=== PATIENT | female | born 1970 | race Caucasian/White ===

== ENCOUNTER 2017-04-04 11:29 | Inpatient (IN) | payer MEDICAID ==
[2017-04-04] MEDS ORDERED: Sodium Chloride 0.9% 500 ML IV SCH (12:15)
--- NOTE | 2017-04-04 12:56 | EDM.PDOC ---
ED HPI GENERAL MEDICAL PROBLEM - General Chief Complaint: Fever Stated Complaint: FEVER X 3 DAYS Time Seen by Provider: 04/04/17 11:53 Source of Information: Reports: Patient History Limitations: Reports: No Limitations - History of Present Illness INITIAL COMMENTS - FREE TEXT/NARRATIVE: 46 yo female presents with headache, neck stiffness, fever and urinary frequency /flank pain for the past 4 days. States that she has fever as high as 103 and has been self medicating with tylenol with relief but fever returns. C/o neck stiffness with movement and headache. 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 Has had decreased in appetite and increase in diarrhea but no vomiting or nausea. Onset Date: 03/31/17 Duration: Constant, Waxing/Waning Location: Reports: Head Quality: Reports: Ache Severity: Moderate Improves with: Reports: Medication Worsens with: Reports: None Associated Symptoms: Reports: Fever/Chills, Headaches, Malaise Treatments CATTLE KNOCKER: Reports: Acetaminophen 7 Pain Score (Numeric/FACES): 7 - Related Data Allergies Allergy/AdvReac Type Severity Reaction Status Date / Time No Known Allergies Allergy Verified 04/04/17 12:13 Home Meds: Home Meds Atenolol 04/04/17 [History] Cholecalciferol (Vitamin D3) [Vitamin D3] BID 04/04/17 [History] Venlafaxine HCl [Venlafaxine ER] 04/04/17 [History] Past Medical History - Past Health History Medical/Surgical History: Denies Medical/Surgical History Cardiovascular History: Reports: Hypertension Musculoskeletal History: Reports: Other (See Below) Other Musculoskeletal History: MS Neurological History: Reports: MS Psychiatric History: Reports: ADHD Oncologic (Cancer) History: Reports: Malignant Melanoma Social & Family History - Family History Family Medical History: Noncontributory - Tobacco Use Smoking Status *Q: Unknown Ever Smoked Second Hand Smoke Exposure: Yes - Caffeine Use Caffeine Use: Reports: Coffee - Recreational Drug Use Recreational Drug Use: No ED ROS GENERAL - Review of Systems Review Of Systems: ROS reveals no pertinent complaints other than HPI. ED EXAM, GENERAL - Physical Exam Exam: See Below Exam Limited By: No Limitations General Appearance: Alert, WD/WN, No Apparent Distress Eye Exam: Bilateral Eye: Normal Inspection, PERRL Ears: Normal External Exam, Normal Canal, Hearing Grossly Normal, Normal TMs Ear Exam: Bilateral Ear: Auricle Normal, Canal Normal, TM normal Nose: Clear Rhinorrhea Throat/Mouth: Normal Inspection, Normal Lips, Normal Teeth, Normal Gums, Normal Oropharynx, Normal Voice, No Airway Compromise Head: Atraumatic, Normocephalic Neck: Normal Inspection, Supple, Non-Tender, Full Range of Motion Respiratory/Chest: No Respiratory Distress, Lungs Clear, Normal Breath Sounds, No Accessory Muscle Use, Chest Non-Tender Cardiovascular: Normal Peripheral Pulses, Regular Rate, Rhythm, No Edema, No Gallop, No JVD, No Murmur, No Rub GI/Abdominal: Normal Bowel Sounds, Soft, Non-Tender, No Organomegaly, No Distention, No Abnormal Bruit, No Mass Back Exam: CVA Tenderness (L), CVA Tenderness (R) Extremities: Normal Inspection, Normal Range of Motion, Non-Tender, Normal Capillary Refill, No Pedal Edema Neurological: Alert, Oriented, Normal Cognition, Normal Gait, No Motor/Sensory Deficits Skin Exam: Warm, Dry, Intact, Normal Color, No Rash Course - Vital Signs Last Recorded V/S: Last Vital Signs Temp 98.2 F 04/04/17 11:49 Pulse 85 04/04/17 11:49 Resp 16 04/04/17 11:49 BP 95/62 04/04/17 11:49 Pulse Ox 95 04/04/17 11:49 - Orders/Labs/Meds Orders: Active Orders 24 hr Category Date Time Status CULTURE BLOOD [BC] Stat Lab 04/04/17 12:25 Received CULTURE URINE [RM] Stat Lab 04/04/17 12:10 Received Sodium Chloride 0.9% [Normal Saline] 500 ml Med 04/04/17 12:15 Active IV .BOLUS Blood Culture x2 Reflex Set [OM.PC] Stat Oth 04/04/17 12:11 Ordered Medication Orders Sodium Chloride (Normal Saline) 500 mls @ 1,000 mls/hr IV .BOLUS YONATAN Last Admin: 04/04/17 12:31 Dose: 1,000 mls/hr Labs: Laboratory Tests 04/04/17 04/04/17 04/04/17 Range/Units 12:10 13:18 13:18 WBC 20.2 H (5.0-10.0) 10^3/uL RBC 4.16 L (4.2-5.4) 10^6/uL Hgb 12.1 (12.0-16.0) g/dL Hct 34.9 L (37.0-47.0) % MCV 83.9 (80-100) fL MCH 29.1 (27.0-34.0) pg MCHC 34.7 (33.0-35.0) g/dL Plt Count 173 (150-450) 10^3/uL Neut % (Auto) 88.8 H (42.2-75.2) % Lymph % (Auto) 4.3 L (20.5-50.1) % [place] % (Auto) 6.8 (2-8) % Eos % (Auto) 0.0 L (1.0-3.0) % Baso % (Auto) 0.1 (0.0-1.0) % Add Manual Diff Yes Neutrophils % (Manual) 67 % Band Neutrophils % 25 % Lymphocytes % (Manual) 4 % Monocytes % (Manual) 4 % Toxic Granulation 1+ slight Platelet Estimate Adequate Sodium 127 L (135-145) mmol/L Potassium 3.4 L (3.6-5.0) mmol/L Chloride 93 L (101-111) mmol/L Carbon Dioxide 20.0 L (21.0-31.0) mmol/L Anion Gap 17.4 BUN 25 H (7-18) mg/dL Creatinine 1.7 H (0.6-1.3) mg/dL Est Cr Clr Drug Dosing 39.78 mL/min Estimated GFR (MDRD) 32 BUN/Creatinine Ratio 14.70 Glucose 89 (74-105) mg/dL Lactic Acid (0.5-2.2) mmol/L Calcium 7.8 L (8.4-10.2) mg/dl Total Bilirubin 0.5 (0.2-1.0) mg/dL AST 21 (10-42) IU/L ALT 15 (10-60) IU/L Alkaline Phosphatase 63 (42-121) IU/L Total Protein 5.8 L (6.7-8.2) g/dl Albumin 3.1 L (3.2-5.5) g/dl Globulin 2.7 Albumin/Globulin Ratio 1.15 Urine Color Yellow (YELLOW) Urine Appearance Cloudy (CLEAR) Urine pH 5.5 (5.0-9.0) Ur Specific [place] 1.025 (1.005-1.030) Urine Protein >=300 H (NEGATIVE) Urine Glucose (UA) Negative (NEGATIVE) Urine Ketones Negative (NEGATIVE) Urine Occult Blood Moderate H (NEGATIVE) Urine Nitrite Negative (NEGATIVE) Urine Bilirubin Small H (NEGATIVE) Urine Urobilinogen 0.2 (0.2-1.0) mg/dL Ur Leukocyte Esterase Large H (NEGATIVE) Urine RBC 10-20 H /HPF Urine WBC 75-100 H (0-5/HPF) /HPF Ur Epithelial Cells Many H /HPF Urine Bacteria Many H (0-FEW/HPF) /HPF Hyaline Casts Few H /LPF Granular Casts Few /LPF Urine Other See note Urinalysis Comment 04/04/17 Range/Units 13:18 WBC (5.0-10.0) 10^3/uL RBC (4.2-5.4) 10^6/uL Hgb (12.0-16.0) g/dL Hct (37.0-47.0) % MCV (80-100) fL MCH (27.0-34.0) pg MCHC (33.0-35.0) g/dL Plt Count (150-450) 10^3/uL Neut % (Auto) (42.2-75.2) % Lymph % (Auto) (20.5-50.1) % [place] % (Auto) (2-8) % Eos % (Auto) (1.0-3.0) % Baso % (Auto) (0.0-1.0) % Add Manual Diff Neutrophils % (Manual) % Band Neutrophils % % Lymphocytes % (Manual) % Monocytes % (Manual) % Toxic Granulation Platelet Estimate Sodium (135-145) mmol/L Potassium (3.6-5.0) mmol/L Chloride (101-111) mmol/L Carbon Dioxide (21.0-31.0) mmol/L Anion Gap BUN (7-18) mg/dL Creatinine (0.6-1.3) mg/dL Est Cr Clr Drug Dosing mL/min Estimated GFR (MDRD) BUN/Creatinine Ratio Glucose (74-105) mg/dL Lactic Acid 2.0 (0.5-2.2) mmol/L Calcium (8.4-10.2) mg/dl Total Bilirubin (0.2-1.0) mg/dL AST (10-42) IU/L ALT (10-60) IU/L Alkaline Phosphatase (42-121) IU/L Total Protein (6.7-8.2) g/dl Albumin (3.2-5.5) g/dl Globulin Albumin/Globulin Ratio Urine Color (YELLOW) Urine Appearance (CLEAR) Urine pH (5.0-9.0) Ur Specific [place] (1.005-1.030) Urine Protein (NEGATIVE) Urine Glucose (UA) (NEGATIVE) Urine Ketones (NEGATIVE) Urine Occult Blood (NEGATIVE) Urine Nitrite (NEGATIVE) Urine Bilirubin (NEGATIVE) Urine Urobilinogen (0.2-1.0) mg/dL Ur Leukocyte Esterase (NEGATIVE) Urine RBC /HPF Urine WBC (0-5/HPF) /HPF Ur Epithelial Cells /HPF Urine Bacteria (0-FEW/HPF) /HPF Hyaline Casts /LPF Granular Casts /LPF Urine Other Urinalysis Comment Meds: Medications Generic Name Dose Route Start Last Admin Trade Name Freq PRN Reason Stop Dose Admin Sodium Chloride 500 mls @ 1,000 mls/hr 04/04/17 12:15 04/04/17 12:31 Normal Saline IV 1,000 mls/hr .BOLUS YONATAN Administration Discontinued Medications Generic Name Dose Route Start Last Admin Trade Name Freq PRN Reason Stop Dose Admin Ceftriaxone Sodium 1 gm/ 50 mls @ 100 mls/hr 04/04/17 13:55 04/04/17 14:05 Sodium Chloride IV 04/04/17 14:24 100 mls/hr ONETIME ONE Administration - Re-Assessments/Exams Free Text/Narrative Re-Assessment/Exam: 04/04/17 14:38 Lab work reviewed and pt has acute pylenonephritis. Discussed case with Dr. Garzon and he agreed to admit for IV antibiotics. Departure - Departure Time of Disposition: 14:39 Disposition: Admitted As Inpatient 65 Condition: Fair Clinical Impression: Pyelonephritis - Discharge Information Forms: ED Department Discharge - My Orders Last 24 Hours: My Active Orders 04/04/17 12:10 CULTURE URINE [RM] Stat 04/04/17 12:11 Blood Culture x2 Reflex Set [OM.PC] Stat 04/04/17 12:15 Sodium Chloride 0.9% [Normal Saline] 500 ml IV .BOLUS 04/04/17 12:25 CULTURE BLOOD [BC] Stat - Assessment/Plan Last 24 Hours: My Active Orders 04/04/17 12:10 CULTURE URINE [RM] Stat 04/04/17 12:11 Blood Culture x2 Reflex Set [OM.PC] Stat 04/04/17 12:15 Sodium Chloride 0.9% [Normal Saline] 500 ml IV .BOLUS 04/04/17 12:25 CULTURE BLOOD [BC] Stat
[2017-04-04] MEDS ORDERED: cefTRIAXone 1 GM in Sodium Chloride 0.9% 50 ML IV ONE (13:55)
[2017-04-04] MEDS ORDERED: Potassium Chloride 10 MEQ Tab.ER PO ONE (15:16)
[2017-04-04] MEDS ORDERED: Ondansetron 4 MG Tab.DIS PO PRN (15:19)
[2017-04-04] MEDS ORDERED: Sodium Chloride 0.9% 10 ML Syringe FLUSH PRN (15:19)
[2017-04-04] MEDS ORDERED: Docusate Sodium 100 MG Cap PO PRN (15:19)
--- NOTE | 2017-04-04 15:29 | PCM.HP ---
H&P History of Present Illness - General Date of Service: 04/04/17 Admit Problem/Dx: Admission Diagnosis/Problem Admission Diagnosis/Problem Pyelonephritis - History of Present Illness Initial Comments - Free Text/Narative: The patient is a 46 year old lady with a history of [place] encephalitis and multiple sclerosis. The patient has a history of hypertension, depression. Since last Thursday the patient has been experiencing chills, headache, foul- smelling urine. Her temperature was up to 102. No cough, no shortness of breath, no chest pain, no diarrhea. 7 Pain Score (Numeric/FACES): 7 - Related Data Allergies/Adverse Reactions: Allergies Allergy/AdvReac Type Severity Reaction Status Date / Time No Known Allergies Allergy Verified 04/04/17 15:11 Home Medications: Home Meds Atenolol 25 mg PO DAILY 04/04/17 [History] Cholecalciferol (Vitamin D3) [Vitamin D3] 10,000 unit PO BID 04/04/17 [History] Venlafaxine HCl [Venlafaxine ER] 150 cap PO DAILY 04/04/17 [History] Past Medical History - Past Health History Medical/Surgical History: Denies Medical/Surgical History Cardiovascular History: Reports: Hypertension Genitourinary History: Reports: Pyelonephritis Musculoskeletal History: Reports: Other (See Below) Other Musculoskeletal History: MS Neurological History: Reports: MS Psychiatric History: Reports: ADHD Oncologic (Cancer) History: Reports: Malignant Melanoma - Past Surgical History Cardiovascular Surgical History: Reports: None Musculoskeletal Surgical History: Reports: None Social & Family History - Family History Family Medical History: Noncontributory - Tobacco Use Smoking Status *Q: Former Smoker Years of Tobacco use: 20 Packs/Tins Daily: 1.5 Used Tobacco, but Quit: Yes Month Tobacco Last Used: February Second Hand Smoke Exposure: Yes - Caffeine Use Caffeine Use: Reports: Coffee - Recreational Drug Use Recreational Drug Use: No H&P Review of Systems - Review of Systems: Review Of Systems: See Below General: Reports: Fever, Chills, Malaise Pulmonary: Denies: Shortness of Breath Cardiovascular: Denies: Chest Pain Gastrointestinal: Denies: Abdominal Pain Genitourinary: Denies: Dysuria Psychiatric: Denies: Confusion Neurological: Reports: Headache Exam - Exam Exam: See Below - Vital Signs Vital Signs: Last Vital Signs Temp 36.8 C 04/04/17 11:49 Pulse 85 04/04/17 11:49 Resp 16 04/04/17 11:49 BP 95/62 04/04/17 11:49 Pulse Ox 95 04/04/17 11:49 Weight: 80.467 kg - Exam Quality Assessment: Other (Shaking chills) General: Alert, Oriented HEENT: Conjunctiva Clear, EOMI Neck: Supple Lungs: Clear to Auscultation, Normal Respiratory Effort Cardiovascular: Regular Rate, Regular Rhythm GI/Abdominal Exam: Normal Bowel Sounds, Soft, Non-Tender Back Exam: CVA Tenderness (L), CVA Tenderness (R) Extremities: No Pedal Edema Skin: Warm, Dry Neuro Extensive - Mental Status: Alert, Oriented x3, Normal Mood/Affect - Patient Data Result Diagrams: 04/04/17 13:18 04/04/17 13:18 *Q Meaningful Use (ADM) - VTE *Q VTE Criteria *Q: - Stroke *Q Stroke Criteria *Q: - AMI *Q AMI Criteria *Q: - Problem List (1) Sepsis SNOMED Code(s): 14329201 ICD Code: A41.9 - SEPSIS, UNSPECIFIED ORGANISM Status: Acute Current Visit: Yes (2) Urinary tract infection SNOMED Code(s): 93910457 ICD Code: N39.0 - URINARY TRACT INFECTION, SITE NOT SPECIFIED Status: Acute Current Visit: Yes (3) Depression SNOMED Code(s): 13220606 ICD Code: F32.9 - MAJOR DEPRESSIVE DISORDER, SINGLE EPISODE, UNSPECIFIED Status: Acute Current Visit: Yes (4) Hypertension SNOMED Code(s): 23646569 ICD Code: I10 - ESSENTIAL (PRIMARY) HYPERTENSION Status: Acute Current Visit: Yes (5) Pyelonephritis SNOMED Code(s): 31897106 ICD Code: N12 - TUBULO-INTERSTITIAL NEPHRITIS, NOT SPCF ACUTE OR CHRONIC Status: Acute Current Visit: Yes Problem List Initiated/Reviewed/Updated: Yes Orders Last 24hrs: Active Orders 24 hr Category Date Time Status Patient Status [ADT] Routine ADT 04/04/17 15:19 Ordered Antiembolic Devices [RC] PER UNIT ROUTINE Care 04/04/17 15:22 Ordered Oxygen Therapy [RC] PRN Care 04/04/17 15:19 Ordered Peripheral IV Care [RC] . DIRECTED Care 04/04/17 15:22 Ordered Up ad Susy [RC] ASDIRECTED Care 04/04/17 15:19 Ordered VTE/DVT Education [RC] PER UNIT ROUTINE Care 04/04/17 15:19 Ordered Vital Signs [RC] Q4H Care 04/04/17 15:19 Ordered Regular Diet [DIET] Diet 04/04/17 Dinner Ordered Acetaminophen [Tylenol] Med 04/04/17 15:19 Ordered 650 mg PO Q4H PRN Atenolol [Tenormin] Med 04/05/17 09:00 Ordered 25 mg PO DAILY Cholecalciferol (Vitamin D3) [Vitamin D3] Med 04/04/17 21:00 Ordered 10,000 unit PO BID Docusate Sodium [Colace] Med 04/04/17 15:19 Ordered 100 mg PO BID PRN Heparin Sodium Med 04/04/17 22:00 Ordered 5,000 units SUBCUT Q8HR Ibuprofen [Motrin] Med 04/04/17 15:19 Ordered 400 mg PO Q6H PRN Ondansetron [Zofran ODT] Med 04/04/17 15:19 Stop Req 4 mg PO Q6H PRN Potassium Chloride [Klor-Con 10] Med 04/04/17 15:16 Once 40 meq PO ONETIME ONE Sodium Chloride 0.9% [Saline Flush] Med 04/04/17 15:19 Ordered 10 ml FLUSH ASDIRECTED PRN Sodium Chloride 0.9% with KCl 20 mEq @ 150 mL/Hr (1000 Med 04/04/17 15:15 Ordered mL) NS + KCl 20mEq/L [Normal Saline with 20 mEq KCl] 1,000 ml IV ASDIRECTED Venlafaxine [Venlafaxine HCl ER] Med 04/05/17 09:00 Ordered 150 cap PO DAILY Zolpidem [Ambien] Med 04/04/17 15:19 Ordered 5 mg PO BEDTIME PRN cefTRIAXone [Rocephin] 1 gm Med 04/05/17 15:15 Ordered Sodium Chloride 0.9% [Normal Saline] 50 ml IV Q24H Antiembolic Hose [OM.PC] Per Unit Routine Oth 04/04/17 15:21 Ordered Peripheral IV Insertion Adult [OM.PC] Routine Oth 04/04/17 15:19 Ordered Resuscitation Status Routine Resus Stat 04/04/17 15:19 Ordered Medication Orders Acetaminophen (Tylenol) 650 mg PO Q4H PRN PRN Reason: Pain (Mild 1-3)/fever Atenolol (Tenormin) 25 mg PO DAILY [facility] Docusate Sodium (Colace) 100 mg PO BID PRN PRN Reason: Constipation Heparin Sodium (Porcine) (Heparin Sodium) 5,000 units SUBCUT Q8HR [facility] Sodium Chloride (Normal Saline) 500 mls @ 1,000 mls/hr IV .BOLUS YONATAN Last Admin: 04/04/17 12:31 Dose: 1,000 mls/hr Potassium Chloride/Sodium Chloride (Normal Saline With 20 Meq Kcl) 1,000 mls @ 150 mls/hr IV ASDIRECTED [facility] Ceftriaxone Sodium 1 gm/ (Sodium Chloride) 50 mls @ 100 mls/hr IV Q24H YONATAN Ibuprofen (Motrin) 400 mg PO Q6H PRN PRN Reason: Pain (mild 1-3) Non-Formulary Medication (Cholecalciferol (Vitamin D3) [Vitamin D3]) 10,000 unit PO BID [facility] Potassium Chloride (Klor-Con 10) 40 meq PO ONETIME ONE Stop: 04/04/17 15:17 Sodium Chloride (Saline Flush) 10 ml FLUSH ASDIRECTED PRN PRN Reason: Keep Vein Open Venlafaxine HCl (Venlafaxine Hcl Er) mg PO DAILY [facility] Zolpidem Tartrate (Ambien) 5 mg PO BEDTIME PRN PRN Reason: Sleep Assessment/Plan Comment:: 46-year-old lady presented with foul-smelling urine abnormal UA, chills leukocytosis fever. #1 sepsis due to urinary tract infection associated with pyelonephritis Obtain blood culture, urine culture Started on empirical treatment with ceftriaxone #2 acute renal failure likely due to sepsis Will hydrate the patient Follow electrolytes and renal function test #3 hyponatremia Likely due to sepsis, hypovolemia Follow with hydration #4 history of hypertension With continue atenolol with holding per meters #5 depression Continue Effexor #6 DVT prophylaxis will be with subcutaneous heparin
[2017-04-04] MEDS: NS + KCl 20mEq/L 1,000 ML IV SCH ×2 (15:50→22:32)
[2017-04-04] MEDS: Ibuprofen 400 MG Tab PO PRN (15:51)
[2017-04-04] MEDS: Acetaminophen 325 MG Tab PO PRN ×2 (16:31→21:13)
[2017-04-04] MEDS: Zolpidem 5 MG Tab PO PRN (21:14)
[2017-04-04] MEDS: Heparin Sodium 5,000 Units/ML Vial SUBCUT SCH (21:15)
[2017-04-05] MEDS: NS + KCl 20mEq/L 1,000 ML IV SCH ×3 (05:13→19:52)
[2017-04-05] MEDS: Ibuprofen 400 MG Tab PO PRN ×3 (05:21→22:18)
[2017-04-05] MEDS: Heparin Sodium 5,000 Units/ML Vial SUBCUT SCH ×3 (05:22→22:01)
[2017-04-05] MEDS: Atenolol 25 MG Tab PO SCH (09:13)
[2017-04-05] MEDS: Venlafaxine 150 MG CAP.ER PO SCH (09:14)
--- NOTE | 2017-04-05 10:38 | PCM.PN ---
- General Info Date of Service: 04/05/17 Admission Dx/Problem (Free Text): Admission Diagnosis/Problem Admission Diagnosis/Problem Pyelonephritis Subjective Update: The chills have much improved. Still had fever overnight. She is feeling much better. No associated chest pain, no abdominal pain, no shortness of breath. Functional Status: Reports: Pain Controlled - Review of Systems General: Reports: Fever. Denies: Weakness Pulmonary: Denies: Shortness of Breath Cardiovascular: Denies: Chest Pain Gastrointestinal: Denies: Abdominal Pain Genitourinary: Denies: Dysuria - Patient Data Vitals - Most Recent: Last Vital Signs Temp 36.3 C 04/05/17 07:04 Pulse 108 H 04/05/17 09:13 Resp 20 04/05/17 07:04 BP 104/66 04/05/17 09:13 Pulse Ox 97 04/05/17 07:04 Weight - Most Recent: 80.467 kg I&O - Last 24 Hours: Intake & Output 04/04/17 04/05/17 04/05/17 22:59 06:59 14:59 Intake Total 1100 1976 200 Output Total 100 Balance 1000 1976 200 Lab Results Last 24 Hours: Laboratory Results - last 24 hr 04/05/17 04/05/17 Range/Units 09:48 09:48 WBC 16.7 H (5.0-10.0) 10^3/uL RBC 3.75 L (4.2-5.4) 10^6/uL Hgb 11.0 L (12.0-16.0) g/dL Hct 31.5 L (37.0-47.0) % MCV 84.0 (80-100) fL MCH 29.3 (27.0-34.0) pg MCHC 34.9 (33.0-35.0) g/dL Plt Count 152 (150-450) 10^3/uL Neut % (Auto) 91.6 H (42.2-75.2) % Lymph % (Auto) 2.6 L (20.5-50.1) % [place] % (Auto) 5.7 (2-8) % Eos % (Auto) 0.0 L (1.0-3.0) % Baso % (Auto) 0.1 (0.0-1.0) % Sodium 133 L (135-145) mmol/L Potassium 3.7 (3.6-5.0) mmol/L Chloride 103 (101-111) mmol/L Carbon Dioxide 21.0 (21.0-31.0) mmol/L Anion Gap 12.7 BUN 19 H (7-18) mg/dL Creatinine 1.2 (0.6-1.3) mg/dL Est Cr Clr Drug Dosing 56.36 mL/min Estimated GFR (MDRD) 48 Glucose 129 H (74-105) mg/dL Calcium 7.8 L (8.4-10.2) mg/dl Med Orders - Current: Current Medications Acetaminophen (Tylenol) 650 mg PO Q4H PRN PRN Reason: Pain (Mild 1-3)/fever Last Admin: 04/04/17 21:13 Dose: 650 mg Atenolol (Tenormin) 25 mg PO DAILY [facility] Last Admin: 04/05/17 09:13 Dose: Not Given Docusate Sodium (Colace) 100 mg PO BID PRN PRN Reason: Constipation Heparin Sodium (Porcine) (Heparin Sodium) 5,000 units SUBCUT Q8HR [facility] Last Admin: 04/05/17 05:22 Dose: 5,000 units Sodium Chloride (Normal Saline) 500 mls @ 1,000 mls/hr IV .BOLUS [facility] Last Admin: 04/04/17 12:31 Dose: 1,000 mls/hr Potassium Chloride/Sodium Chloride (Normal Saline With 20 Meq Kcl) 1,000 mls @ 150 mls/hr IV ASDIRECTED [facility] Last Admin: 04/05/17 05:13 Dose: 150 mls/hr Ceftriaxone Sodium 1 gm/ (Sodium Chloride) 50 mls @ 100 mls/hr IV Q24H [facility] Ibuprofen (Motrin) 400 mg PO Q6H PRN PRN Reason: Pain (mild 1-3) Last Admin: 04/05/17 05:21 Dose: 400 mg Cholecalciferol ( Vitamin D3) 5,000 Unit Cap 0 unit PO BID [facility] Last Admin: 04/05/17 09:12 Dose: 2 unit Sodium Chloride (Saline Flush) 10 ml FLUSH ASDIRECTED PRN PRN Reason: Keep Vein Open Venlafaxine HCl (Venlafaxine Hcl Er) 150 mg PO DAILY [facility] Last Admin: 04/05/17 09:14 Dose: 150 mg Zolpidem Tartrate (Ambien) 5 mg PO BEDTIME PRN PRN Reason: Sleep Last Admin: 04/04/17 21:14 Dose: 5 mg Discontinued Medications Ceftriaxone Sodium 1 gm/ (Sodium Chloride) 50 mls @ 100 mls/hr IV ONETIME ONE Stop: 04/04/17 14:24 Last Admin: 04/04/17 14:05 Dose: 100 mls/hr Ondansetron HCl (Zofran Odt) 4 mg PO Q6H PRN PRN Reason: nausea, able to take PO Potassium Chloride (Klor-Con 10) 40 meq PO ONETIME ONE Stop: 04/04/17 15:17 Last Admin: 04/04/17 15:51 Dose: 40 meq - Exam General: Alert, Oriented Neck: Supple Lungs: Clear to Auscultation, Normal Respiratory Effort Cardiovascular: Regular Rate, Regular Rhythm GI/Abdominal Exam: Normal Bowel Sounds, Soft, Non-Tender Extremities: No Pedal Edema - Problem List & Annotations (1) Sepsis SNOMED Code(s): 68674485 Code(s): A41.9 - SEPSIS, UNSPECIFIED ORGANISM Status: Acute Current Visit : Yes (2) Urinary tract infection SNOMED Code(s): 89125813 Code(s): N39.0 - URINARY TRACT INFECTION, SITE NOT SPECIFIED Status: Acute Current Visit: Yes (3) Depression SNOMED Code(s): 59329098 Code(s): F32.9 - MAJOR DEPRESSIVE DISORDER, SINGLE EPISODE, UNSPECIFIED Status: Acute Current Visit: Yes (4) Hypertension SNOMED Code(s): 99542622 Code(s): I10 - ESSENTIAL (PRIMARY) HYPERTENSION Status: Acute Current Visit: Yes (5) Pyelonephritis SNOMED Code(s): 59667572 Code(s): N12 - TUBULO-INTERSTITIAL NEPHRITIS, NOT SPCF ACUTE OR CHRONIC Status: Acute Current Visit: Yes - Problem List Review Problem List Initiated/Reviewed/Updated: Yes - My Orders Last 24 Hours: My Active Orders 04/04/17 15:15 NS + KCl 20mEq/L [Normal Saline with 20 mEq KCl] 1,000 ml IV ASDIRECTED 04/04/17 15:19 Patient Status [ADT] Routine Oxygen Therapy [RC] PRN Up ad Susy [RC] ASDIRECTED Vital Signs [RC] Q4H Acetaminophen [Tylenol] 650 mg PO Q4H PRN Docusate Sodium [Colace] 100 mg PO BID PRN Ibuprofen [Motrin] 400 mg PO Q6H PRN Sodium Chloride 0.9% [Saline Flush] 10 ml FLUSH ASDIRECTED PRN Zolpidem [Ambien] 5 mg PO BEDTIME PRN Peripheral IV Insertion Adult [OM.PC] Routine Resuscitation Status Routine 04/04/17 15:21 Antiembolic Hose [OM.PC] Per Unit Routine 04/04/17 15:22 Antiembolic Devices [RC] PER UNIT ROUTINE Peripheral IV Care [RC] 04/04/17 21:00 Cholecalciferol (Vitamin D3) [Vitamin D3] 0 unit PO BID 04/04/17 22:00 Heparin Sodium 5,000 units SUBCUT Q8HR 04/04/17 Dinner Regular Diet [DIET] 04/05/17 09:00 Atenolol [Tenormin] 25 mg PO DAILY Venlafaxine [Venlafaxine HCl ER] 150 mg PO DAILY 04/05/17 15:00 cefTRIAXone [Rocephin] 1 gm Sodium Chloride 0.9% [Normal Saline] 50 ml IV Q24H 04/06/17 05:15 BASIC METABOLIC PANEL,BMP [CHEM] AM CBC WITH AUTO DIFF [HEME] AM - Plan Plan:: 46-year-old lady presented with foul-smelling urine abnormal UA, chills leukocytosis fever. #1 sepsis due to urinary tract infection associated with pyelonephritis blood culture: pending urine culture: gram neg suha Started on empirical treatment with ceftriaxone #2 acute renal failure likely due to sepsis improved - will cont to hydrate the patient Follow electrolytes and renal function test #3 hyponatremia improved Likely due to sepsis, hypovolemia Follow with hydration #4 history of hypertension will continue atenolol with holding parameters hold this morning #5 depression Continue Effexor #6 DVT prophylaxis will be with subcutaneous heparin
[2017-04-05] MEDS: Acetaminophen 325 MG Tab PO PRN ×3 (12:14→20:39)
[2017-04-05] MEDS ORDERED: cefTRIAXone 1 GM in Sodium Chloride 0.9% 50 ML IV SCH (15:00)
[2017-04-05] MEDS ORDERED: Pantoprazole 40 MG Tab.CR PO SCH (16:45)
[2017-04-06] MEDS: Acetaminophen 325 MG Tab PO PRN ×3 (03:32→14:06)
[2017-04-06] MEDS: Pantoprazole 40 MG Tab.CR PO SCH (05:57)
[2017-04-06] MEDS: Heparin Sodium 5,000 Units/ML Vial SUBCUT SCH ×3 (05:57→21:48)
[2017-04-06 06:56] LABS: CHLORIDE,CL 110 mmol/L (101-111); SODIUM,NA 139 mmol/L (135-145)
[2017-04-06] MEDS: Venlafaxine 150 MG CAP.ER PO SCH (08:59)
--- NOTE | 2017-04-06 10:55 | PCM.PN ---
- General Info Date of Service: 04/06/17 Admission Dx/Problem (Free Text): Admission Diagnosis/Problem Admission Diagnosis/Problem Pyelonephritis Subjective Update: The chills have much improved. Still had fever overnight. She is feeling much better. She is often walking around. No associated chest pain, no abdominal pain, no shortness of breath. - Review of Systems General: Reports: Fever. Denies: Weakness Pulmonary: Denies: Shortness of Breath Cardiovascular: Denies: Chest Pain Gastrointestinal: Denies: Abdominal Pain Genitourinary: Reports: Dysuria Neurological: Denies: Confusion - Patient Data Vitals - Most Recent: Last Vital Signs Temp 37.7 C 04/06/17 07:00 Pulse 97 04/06/17 07:00 Resp 18 04/06/17 07:00 BP 99/59 L 04/06/17 07:00 Pulse Ox 96 04/06/17 07:00 Weight - Most Recent: 82.826 kg I&O - Last 24 Hours: Intake & Output 04/05/17 04/06/17 04/06/17 22:59 06:59 14:59 Intake Total 2000 1249 Output Total 1249 900 Balance 751 350 Lab Results Last 24 Hours: Laboratory Results - last 24 hr 04/06/17 04/06/17 Range/Units 05:55 05:55 WBC 13.8 H (5.0-10.0) 10^3/uL RBC 3.73 L (4.2-5.4) 10^6/uL Hgb 10.8 L (12.0-16.0) g/dL Hct 31.8 L (37.0-47.0) % MCV 85.3 (80-100) fL MCH 29.0 (27.0-34.0) pg MCHC 34.0 (33.0-35.0) g/dL Plt Count 174 (150-450) 10^3/uL Neut % (Auto) 85.9 H (42.2-75.2) % Lymph % (Auto) 5.2 L (20.5-50.1) % [place] % (Auto) 8.8 H (2-8) % Eos % (Auto) 0.1 L (1.0-3.0) % Baso % (Auto) 0.0 (0.0-1.0) % Sodium 139 (135-145) mmol/L Potassium 3.8 (3.6-5.0) mmol/L Chloride 110 (101-111) mmol/L Carbon Dioxide 21.0 (21.0-31.0) mmol/L Anion Gap 11.8 BUN 14 (7-18) mg/dL Creatinine 0.9 (0.6-1.3) mg/dL Est Cr Clr Drug Dosing 75.15 mL/min Estimated GFR (MDRD) > 60 Glucose 99 (74-105) mg/dL Calcium 7.8 L (8.4-10.2) mg/dl Med Orders - Current: Current Medications Acetaminophen (Tylenol) 650 mg PO Q4H PRN PRN Reason: Pain (Mild 1-3)/fever Last Admin: 04/06/17 08:58 Dose: 650 mg Atenolol (Tenormin) 25 mg PO DAILY [facility] Last Admin: 04/05/17 09:13 Dose: Not Given Docusate Sodium (Colace) 100 mg PO BID PRN PRN Reason: Constipation Heparin Sodium (Porcine) (Heparin Sodium) 5,000 units SUBCUT Q8HR [facility] Last Admin: 04/06/17 05:57 Dose: 5,000 units Levofloxacin/Dextrose 750 mg/ (Premix) 150 mls @ 100 mls/hr IV Q24H [facility] Ibuprofen (Motrin) 400 mg PO Q6H PRN PRN Reason: Pain (mild 1-3) Last Admin: 04/05/17 22:18 Dose: 400 mg Cholecalciferol ( Vitamin D3) 5,000 Unit Cap 0 unit PO BID [facility] Last Admin: 04/06/17 08:57 Dose: 10,000 unit Pantoprazole Sodium (Protonix) 40 mg PO ACBREAKFAST [facility] Last Admin: 04/06/17 05:57 Dose: 40 mg Sodium Chloride (Saline Flush) 10 ml FLUSH ASDIRECTED PRN PRN Reason: Keep Vein Open Venlafaxine HCl (Venlafaxine Hcl Er) 150 mg PO DAILY [facility] Last Admin: 04/06/17 08:59 Dose: 150 mg Zolpidem Tartrate (Ambien) 5 mg PO BEDTIME PRN PRN Reason: Sleep Last Admin: 04/04/17 21:14 Dose: 5 mg Discontinued Medications Sodium Chloride (Normal Saline) 500 mls @ 1,000 mls/hr IV .BOLUS [facility] Last Admin: 04/04/17 12:31 Dose: 1,000 mls/hr Ceftriaxone Sodium 1 gm/ (Sodium Chloride) 50 mls @ 100 mls/hr IV ONETIME ONE Stop: 04/04/17 14:24 Last Admin: 04/04/17 14:05 Dose: 100 mls/hr Potassium Chloride/Sodium Chloride (Normal Saline With 20 Meq Kcl) 1,000 mls @ 75 mls/hr IV ASDIRECTED [facility] Last Infusion: 04/06/17 07:05 Dose: Infused Ceftriaxone Sodium 1 gm/ (Sodium Chloride) 50 mls @ 100 mls/hr IV Q24H [facility] Last Admin: 04/05/17 15:46 Dose: 100 mls/hr Ondansetron HCl (Zofran Odt) 4 mg PO Q6H PRN PRN Reason: nausea, able to take PO Pantoprazole Sodium (Protonix) 40 mg PO BEDTIME [facility] Last Admin: 04/05/17 17:26 Dose: 40 mg Potassium Chloride (Klor-Con 10) 40 meq PO ONETIME ONE Stop: 04/04/17 15:17 Last Admin: 04/04/17 15:51 Dose: 40 meq - Exam General: Alert, Oriented Neck: Supple Lungs: Clear to Auscultation, Normal Respiratory Effort Cardiovascular: Regular Rate, Regular Rhythm Extremities: No Pedal Edema Skin: Warm, Dry Neurological: No New Focal Deficit Psy/Mental Status: Alert, Normal Mood - Problem List & Annotations (1) Sepsis SNOMED Code(s): 37264638 Code(s): A41.9 - SEPSIS, UNSPECIFIED ORGANISM Status: Acute Current Visit : Yes (2) Urinary tract infection SNOMED Code(s): 49095067 Code(s): N39.0 - URINARY TRACT INFECTION, SITE NOT SPECIFIED Status: Acute Current Visit: Yes (3) Depression SNOMED Code(s): 87608563 Code(s): F32.9 - MAJOR DEPRESSIVE DISORDER, SINGLE EPISODE, UNSPECIFIED Status: Acute Current Visit: Yes (4) Hypertension SNOMED Code(s): 22709043 Code(s): I10 - ESSENTIAL (PRIMARY) HYPERTENSION Status: Acute Current Visit: Yes (5) Pyelonephritis SNOMED Code(s): 27404658 Code(s): N12 - TUBULO-INTERSTITIAL NEPHRITIS, NOT SPCF ACUTE OR CHRONIC Status: Acute Current Visit: Yes - Problem List Review Problem List Initiated/Reviewed/Updated: Yes - My Orders Last 24 Hours: My Active Orders 04/06/17 06:00 Pantoprazole [ProTONIX] 40 mg PO ACBREAKFAST 04/06/17 11:00 Levofloxacin/Dextrose 5%-Water [Levaquin in D5W 750 MG/150 ML] 750 mg Premix Bag 1 bag IV Q24H 04/07/17 05:15 BASIC METABOLIC PANEL,BMP [CHEM] AM CBC WITH AUTO DIFF [HEME] AM - Plan Plan:: 46-year-old lady presented with foul-smelling urine abnormal UA, chills leukocytosis fever. #1 sepsis due to urinary tract infection associated with pyelonephritis blood culture: Negative urine culture: Escherichia coli and Enterococcus faecalis Started on empirical treatment with ceftriaxone Will switch to levofloxacin that she will be able to continue after discharge #2 acute renal failure likely due to sepsis improved - will stop IV fluid Follow electrolytes and renal function test #3 hyponatremia improved Likely due to sepsis, hypovolemia Follow after stopping the fluid #4 history of hypertension will continue to hold atenolol #5 depression Continue Effexor #6 DVT prophylaxis will be with subcutaneous heparin
[2017-04-06] MEDS ORDERED: Levofloxacin/Dextrose 5%-Water 750 MG in Premix Bag 1 BAG IV SCH (11:00)
[2017-04-06] MEDS: Atenolol 25 MG Tab PO SCH (11:19)
[2017-04-06] MEDS: Ibuprofen 400 MG Tab PO PRN ×2 (12:08→19:32)
[2017-04-06] MEDS: Zolpidem 5 MG Tab PO PRN (21:48)
[2017-04-07] MEDS: Acetaminophen 325 MG Tab PO PRN (00:49)
[2017-04-07] MEDS: Pantoprazole 40 MG Tab.CR PO SCH (06:01)
[2017-04-07] MEDS: Heparin Sodium 5,000 Units/ML Vial SUBCUT SCH (06:01)
[2017-04-07] MEDS: Ibuprofen 400 MG Tab PO PRN (06:06)
[2017-04-07 06:49] LABS: CHLORIDE,CL 106 mmol/L (101-111); SODIUM,NA 138 mmol/L (135-145)
[2017-04-07] MEDS: Atenolol 25 MG Tab PO SCH (09:09)
[2017-04-07] MEDS: Venlafaxine 150 MG CAP.ER PO SCH (09:10)
[2017-04-07] MEDS ORDERED: Potassium Chloride 10 MEQ Tab.ER PO ONE (10:36)
--- NOTE | 2017-04-07 10:41 | PCM.DCSUM1 ---
Discharge Summary - Hospital Course Free Text/Narrative:: 46-year-old lady presented with foul-smelling urine abnormal UA, chills leukocytosis fever. #1 sepsis due to urinary tract infection associated with pyelonephritis blood culture: Negative urine culture: Escherichia coli and Enterococcus faecalis both sensitive to fluoroquinolone Started on empirical treatment with ceftriaxone Switched to levofloxacin #2 acute renal failure likely due to sepsis resolved #3 hyponatremia resolved Likely due to sepsis, hypovolemia #4 history of hypertension resume atenolol #5 depression Continue Effexor - Discharge Data Discharge Date: 04/07/17 Discharge Disposition: Home, Self-Care 01 Condition: Good - Discharge Diagnosis/Problem(s) (1) Sepsis SNOMED Code(s): 80582814 ICD Code: A41.9 - SEPSIS, UNSPECIFIED ORGANISM Status: Acute Current Visit: Yes Qualifiers: Sepsis type: Escherichia coli Qualified Code(s): A41.51 - Sepsis due to Escherichia coli [E. coli] (2) Urinary tract infection SNOMED Code(s): 92521431 ICD Code: N39.0 - URINARY TRACT INFECTION, SITE NOT SPECIFIED Status: Acute Current Visit: Yes Qualifiers: Urinary tract infection type: acute pyelonephritis Qualified Code(s): N10 - Acute pyelonephritis (3) Depression SNOMED Code(s): 52665229 ICD Code: F32.9 - MAJOR DEPRESSIVE DISORDER, SINGLE EPISODE, UNSPECIFIED Status: Acute Current Visit: Yes (4) Hypertension SNOMED Code(s): 79554731 ICD Code: I10 - ESSENTIAL (PRIMARY) HYPERTENSION Status: Acute Current Visit: Yes (5) Pyelonephritis SNOMED Code(s): 47133298 ICD Code: N12 - TUBULO-INTERSTITIAL NEPHRITIS, NOT SPCF ACUTE OR CHRONIC Status: Acute Current Visit: Yes - Patient Instructions Diet: Usual Diet as Tolerated Activity: As Tolerated - Discharge Plan Prescriptions/Med Rec: Levofloxacin 750 mg PO DAILY #7 tablet Home Medications: Home Meds Atenolol 25 mg PO DAILY 04/04/17 [History] Cholecalciferol (Vitamin D3) [Vitamin D3] 10,000 unit PO BID 04/04/17 [History] Venlafaxine HCl [Venlafaxine ER] 150 cap PO DAILY 04/04/17 [History] Ibuprofen [Motrin] 400 mg PO Q6H PRN tablet 04/07/17 [Rx] Levofloxacin 750 mg PO DAILY #7 tablet 04/07/17 [Rx] Referrals: PCP,None [Primary Care Provider] - (in 1 week) - Discharge Summary/Plan Comment DC Time >30 min.: No - General Info Functional Status: Reports: Pain Controlled - Review of Systems General: Denies: Fever Pulmonary: Denies: Shortness of Breath Cardiovascular: Denies: Chest Pain Gastrointestinal: Denies: Abdominal Pain Genitourinary: Reports: Flank Pain (mild right ). Denies: Dysuria - Patient Data Vitals - Most Recent: Last Vital Signs Temp 36.8 C 04/07/17 10:00 Pulse 95 04/07/17 10:00 Resp 20 04/07/17 10:00 BP 115/70 04/07/17 10:00 Pulse Ox 97 04/07/17 10:00 Weight - Most Recent: 82.826 kg I&O - Last 24 hours: Intake & Output 04/06/17 04/07/17 04/07/17 22:59 06:59 14:59 Output Total 800 Balance -800 Lab Results - Last 24 hrs: Laboratory Results - last 24 hr 04/07/17 04/07/17 Range/Units 05:55 05:55 WBC 13.9 H (5.0-10.0) 10^3/uL RBC 3.90 L (4.2-5.4) 10^6/uL Hgb 11.3 L (12.0-16.0) g/dL Hct 32.8 L (37.0-47.0) % MCV 84.1 (80-100) fL MCH 29.0 (27.0-34.0) pg MCHC 34.5 (33.0-35.0) g/dL Plt Count 185 (150-450) 10^3/uL Neut % (Auto) 82.4 H (42.2-75.2) % Lymph % (Auto) 7.3 L (20.5-50.1) % [place] % (Auto) 10.2 H (2-8) % Eos % (Auto) 0.1 L (1.0-3.0) % Baso % (Auto) 0.0 (0.0-1.0) % Add Manual Diff Sodium 138 (135-145) mmol/L Potassium 3.4 L (3.6-5.0) mmol/L Chloride 106 (101-111) mmol/L Carbon Dioxide 23.0 (21.0-31.0) mmol/L Anion Gap 12.4 BUN 11 (7-18) mg/dL Creatinine 0.9 (0.6-1.3) mg/dL Est Cr Clr Drug Dosing 75.15 mL/min Estimated GFR (MDRD) > 60 Glucose 93 (74-105) mg/dL Calcium 8.3 L (8.4-10.2) mg/dl Med Orders - Current: Current Medications Acetaminophen (Tylenol) 650 mg PO Q4H PRN PRN Reason: Pain (Mild 1-3)/fever Last Admin: 04/07/17 00:49 Dose: 650 mg Atenolol (Tenormin) 25 mg PO DAILY [facility] Last Admin: 04/07/17 09:09 Dose: 25 mg Docusate Sodium (Colace) 100 mg PO BID PRN PRN Reason: Constipation Heparin Sodium (Porcine) (Heparin Sodium) 5,000 units SUBCUT Q8HR [facility] Last Admin: 04/07/17 06:01 Dose: 5,000 units Levofloxacin/Dextrose 750 mg/ (Premix) 150 mls @ 100 mls/hr IV Q24H [facility] Last Infusion: 04/06/17 17:48 Dose: Infused Ibuprofen (Motrin) 400 mg PO Q6H PRN PRN Reason: Pain (mild 1-3) Last Admin: 04/07/17 06:06 Dose: 400 mg Cholecalciferol ( Vitamin D3) 5,000 Unit Cap 0 unit PO BID [facility] Last Admin: 04/07/17 09:10 Dose: 10,000 unit Pantoprazole Sodium (Protonix) 40 mg PO ACBREAKFAST [facility] Last Admin: 04/07/17 06:01 Dose: 40 mg Potassium Chloride (Klor-Con 10) 40 meq PO ONETIME ONE Stop: 04/07/17 10:37 Sodium Chloride (Saline Flush) 10 ml FLUSH ASDIRECTED PRN PRN Reason: Keep Vein Open Last Admin: 04/06/17 12:07 Dose: 10 ml Venlafaxine HCl (Venlafaxine Hcl Er) 150 mg PO DAILY [facility] Last Admin: 04/07/17 09:10 Dose: 150 mg Zolpidem Tartrate (Ambien) 5 mg PO BEDTIME PRN PRN Reason: Sleep Last Admin: 04/06/17 21:48 Dose: 5 mg Discontinued Medications Sodium Chloride (Normal Saline) 500 mls @ 1,000 mls/hr IV .BOLUS [facility] Last Admin: 04/04/17 12:31 Dose: 1,000 mls/hr Ceftriaxone Sodium 1 gm/ (Sodium Chloride) 50 mls @ 100 mls/hr IV ONETIME ONE Stop: 04/04/17 14:24 Last Admin: 04/04/17 14:05 Dose: 100 mls/hr Potassium Chloride/Sodium Chloride (Normal Saline With 20 Meq Kcl) 1,000 mls @ 75 mls/hr IV ASDIRECTED [facility] Last Infusion: 04/06/17 07:05 Dose: Infused Ceftriaxone Sodium 1 gm/ (Sodium Chloride) 50 mls @ 100 mls/hr IV Q24H [facility] Last Admin: 04/05/17 15:46 Dose: 100 mls/hr Ondansetron HCl (Zofran Odt) 4 mg PO Q6H PRN PRN Reason: nausea, able to take PO Pantoprazole Sodium (Protonix) 40 mg PO BEDTIME [facility] Last Admin: 04/05/17 17:26 Dose: 40 mg Potassium Chloride (Klor-Con 10) 40 meq PO ONETIME ONE Stop: 04/04/17 15:17 Last Admin: 04/04/17 15:51 Dose: 40 meq - Exam General: Reports: Alert, Oriented Neck: Reports: Supple Lungs: Reports: Clear to Auscultation, Normal Respiratory Effort Cardiovascular: Reports: Regular Rate, Regular Rhythm GI/Abdominal Exam: Normal Bowel Sounds, Soft, Non-Tender, Other (obese) Extremities: No Pedal Edema *Q Meaningful Use (DIS) - VTE *Q VTE Criteria *Q: - Stroke *Q Stroke Criteria *Q: - AMI *Q AMI Criteria *Q:
[2017-04-07 11:00] VITALS: BP 105/66
== END 2017-04-07 11:36 | disposition home or self-care (01) | DRG 872 ==
LOC: DL.ED 11:29 → DL.MS 14:56
PROVIDERS: ADMIT Internal Medicine; ATTEND Internal Medicine
DX: A41.9 Sepsis, unspecified organism (principal); N12 Tubulo-interstitial nephritis, not specified as acute or chronic; E87.1 Hypo-osmolality and hyponatremia; N39.0 Urinary tract infection, site not specified; N17.9 Acute kidney failure, unspecified; F32.9 Major depressive disorder, single episode, unspecified; I10 Essential (primary) hypertension; F90.9 Attention-deficit hyperactivity disorder, unspecified type; B96.20 Unspecified Escherichia coli [E. coli] as the cause of diseases classified elsewhere; B95.2 Enterococcus as the cause of diseases classified elsewhere
CPT/HCPCS: 36415; 71010; 80048; 80053; 81001; 83605; 85025; 87040; 87086; 87088; 87186; 96361; 96365; 99284; A9270-GY; J0696; J1644; J1956; J3480; J7030; J7050

== ENCOUNTER 2017-09-23 18:28 | Emergency (ER) | payer OTHER, MEDICAID ==
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
[2017-09-23 19:46] LABS: CHLORIDE,CL 103 mmol/L (101-111); SODIUM,NA 139 mmol/L (135-145)
[2017-09-23] MEDS: Amoxicillin/Clavulanate K 500-125 MG Tab PO ONE (21:19)
== END 2017-09-23 21:28 | disposition home or self-care (01) ==
LOC: DL.ED 18:28
DX: S06.0X9A Concussion with loss of consciousness of unspecified duration, initial encounter (principal); S29.012A Strain of muscle and tendon of back wall of thorax, initial encounter; I10 Essential (primary) hypertension; Z79.899 Other long term (current) drug therapy; Z87.891 Personal history of nicotine dependence; V47.5XXA Car driver injured in collision with fixed or stationary object in traffic accident, initial encounter
CPT/HCPCS: 36415; 70450; 71101; 72125; 72170; 73060; 73551; 73562; 80053; 80305; 81001; 85025; 99285; A9270; G0480